=== PATIENT | male | born 1995 | race Two or more races ===

== ENCOUNTER 2024-06-15 08:32 | Emergency (ER) | payer MEDICAID, SELFPAY ==
[2024-06-15 08:33] VITALS: BMI 27.4
--- NOTE | 2024-06-15 08:34 | XR_ITS ---
Examination: Hand, right 3 views Technique: Hand AP, oblique, lateral 3 views Date and time of exam: June 15, 2024 0853 hours INDICATIONS: Injury to the hand today, hand pain FINDINGS: No acute fracture No dislocation No foreign body IMPRESSION: No acute fracture
[2024-06-15 08:39] VITALS: BP 170/99; PULSE 72; RESP 19; TEMP 37; O2SAT 98
--- NOTE | 2024-06-15 09:18 | EDNOTE_ITS ---
Upper Extremity Injury RME/HPI General Chief Complaint: Hand/Wrist Problems Stated Complaint: RIGHT HAND INJURY, BRICK FELL ON IT Time Seen by Provider: 06/15/24 08:34 Arrival date/time: 06/15/24 08:32 28-year-old male presents the emergency department complaints of injury to the right hand patient reports pain after a brick fell on the right hand Limitations: no limitations Related Data Previous Rx's ?Medication ?Instructions ?Recorded naproxen 500 mg tablet (Naprosyn) 500 mg PO BID PRN pain #30 tabs 07/06/21 ibuprofen 800 mg tablet 800 mg PO TID PRN pain #30 tabs 06/15/24 Allergies Allergy/AdvReac Type Severity Reaction Status Date / Time No Known Allergies Allergy Verified 06/15/24 08:35 Review of Systems Review of Systems Systems Reviewed: All systems reviewed, normal except as documented Constitutional Constitutional: Reports system reviewed and no additional complaints, except as documented, Denies fever(s) and Denies headache(s) Eyes Eyes: Reports system reviewed and no additional complaints, except as documented and Denies blurry vision ENT Ears, Nose, Mouth, and Throat: Reports system reviewed and no additional complaints, except as documented, Denies headache(s), Denies nasal congestion and Denies nasal discharge Cardiovascular Cardiovascular: Reports system reviewed and no additional complaints, except as documented, Denies chest pain and Denies dyspnea Respiratory Respiratory: Reports system reviewed and no additional complaints, except as documented, Denies chest congestion, Denies cough and Denies dyspnea Gastrointestinal Gastrointestinal: Reports system reviewed and no additional complaints, except as documented and Denies abdominal pain Musculoskeletal Musculoskeletal: Reports system reviewed and no additional complaints, except as documented and Reports arthralgias Integumentary/Breasts Skin/Breast: Reports system reviewed and no additional complaints, except as d ocumented and Denies rash Neurologic Neurologic: Reports system reviewed and no additional complaints, except as documented, Reports as per HPI and Denies headache(s) Past Medical History Past Medical History CARDIAC: Negative Congestive Heart Failure RESPIRATORY: Negative Chronic Obstructive Pulmonary Disease (COPD) GENITOURINARY: Negative Renal Disease ENDOCRINE: Negative Diabetes Mellitus Type 1 or Diabetes Mellitus Type 2 Social History SMOKING STATUS: Never smoker ED Exam General Limitations: Present no limitations General appearance: Present alert and in no apparent distress Head Head exam: Present atraumatic Eye Eye exam: Present normal appearance, PERRL and EOMI ENT ENT exam: Present normal exam, normal oropharynx and mucous membranes moist Neck Neck exam: Present normal inspection, full ROM and trachea midline Chest Chest inspection: Present normal inspection and symmetric chest wall rise Respiratory Respiratory exam: Present normal lung sounds bilaterally Cardiovascular Cardiovascular exam: Present regular rate, normal rhythm and normal heart sounds Abdominal Exam Abdominal exam: Present soft and normal bowel sounds Extremities Exam Extremities exam: Present full ROM, tenderness, normal capillary refill and joint swelling; Absent pedal edema or calf tenderness Back Exam Back exam: Present normal inspection and full ROM Neurological Exam Neurological exam: Present alert, oriented X3 and CN II-XII intact Psychiatric Psychiatric exam: Present normal affect and normal mood Skin Skin exam: Present warm, dry, intact and normal color Course Quality Measures none Orders Category Date Time Status junior wrap [Splint / Immobilizer] STAT Care 06/15/24 09:29 Active XR hand comp RT min 3V Stat Exams 06/15/24 08:34 Completed Vital Signs Vital signs: Vital Signs Temperature 98.6 F 06/15/24 08:39 Pulse Rate 72 06/15/24 08:39 Respiratory Rate 19 06/15/24 08:39 Blood Pressure 170/99 H 06/15/24 08:39 Pulse Oximetry (%) 98 06/15/24 08:39 Oxygen Delivery Method Room Air 06/15/24 08:39 O2 saturation 98% on room air within normal limits Extremity Injury MDM Narrative MDM Narrative:: 28-year-old male presents the emergency department complaints of injury to the right hand patient reports pain after a brick fell on the right hand On exam patient has small hematoma dorsal aspect of the right hand patient can move all fingers without difficulty X-ray of the right hand obtained no acute fracture dislocation noted Patient placed in Junior wrap Patient discharged home in no distress to follow-up with primary care doctor in the next 24 to 48 hours and for any worsening symptoms to return to the ER immediately Patient data External records reviewed:: [facility] previous records Clinical information provided by:: patient Social determinants that could affect healthcare access:: none Patient has the following chronic illnesses:: None How is presenting disease/condition affected by chronic disease/condition?: no chronic disease Evaluation data The following diagnostics were reviewed and interpreted by me:: radiology exam(s) Lab and/or radiology exams considered but not ordered:: Radiology obtained Interpretation Summary: Reviewed by me Medications / Prescriptions Medications or Prescriptions considered but not ordered:: Given Medication administrations:: Given Consultations Consultation(s) initiated? (list below): No Diagnosis Upper Extremity Injury Differential Diagnosis: other (Hand sprain, hand fracture, hand contusion) Most likely diagnosis given after review of the tests above:: Contusion hand Admission Indicated Admission indicated?: not indicated Admission Request Was there a request for admission?: No Disposition Plan Disposition Plan: Discharge Discharge Attestation Discharge Attestation: The patient and all family members were given an opportunity to ask questions and understood the discharge instructions. Discharge instructions specifically effects, indications for sooner follow up or return to the emergency department, and the expected course of current diagnosis. Patient condition: Stable Discharge Plan Plan Patient Disposition: HOME (Self Care) Prescriptions/Referrals Prescriptions/Med Rec: New ibuprofen 800 mg tablet 800 mg PO TID PRN (Reason: pain) Qty: 30 0RF No Action naproxen [Naprosyn] 500 mg tablet 500 mg PO BID PRN (Reason: pain) Qty: 30 0RF Referrals: No Primary/Family,Physician [Primary Care Provider] - 06/16/24 Problem List Clinical Impression: Hematoma of right hand Patient/Caregiver Discharge Instructions Education Materials: ED Hand Contusion Additional Instructions: Please follow up with your primary care doctor in the next 24-48hrs for any worsening symptoms return here immediately Print Language: Kyrgyz Stand Alone Forms: Leda Award Info., Work/School Release, Patient Portal Info Letter PA/STATEMENT SERVICES REPRESENTATIVE Supervising Physician PA/STATEMENT SERVICES REPRESENTATIVE Supervising Physician: Dr. Sy
== END 2024-06-15 10:16 | disposition home or self-care (01) ==
PROVIDERS: Emergency Provider Emergency Medicine
DX: S60.221A Contusion of right hand, initial encounter (principal); W20.8XXA Other cause of strike by thrown, projected or falling object, initial encounter
CPT/HCPCS: 73130; 99283